=== PATIENT | female | born 1945 | race Caucasian/White ===

== ENCOUNTER 2017-09-28 14:20 | Outpatient (CLI) | payer MEDICARE | END 2017-09-28 14:21 | disposition home or self-care (01) | LOC: BICMAMMO 14:20 | PROVIDERS: ATTEND Obstetrics & Gynecology | DX: Z12.31 Encounter for screening mammogram for malignant neoplasm of breast (principal); R92.1 Mammographic calcification found on diagnostic imaging of breast | CPT/HCPCS: 77063; 77067 ==

== ENCOUNTER 2019-05-10 12:41 | Outpatient (CLI) | payer MEDICARE ==
--- NOTE | 2019-05-10 16:10 | NM ---
EXAM: NM Hida Scan W Drug PROVIDED CLINICAL HISTORY: Right upper quadrant abdominal pain. COMPARISON: None FINDINGS: There is prompt uptake and excretion of radiotracer by the liver. Bowel activity is visualized by 7 m inutes with gallbladder activity visualized by approximately 15 minutes with increasing activity in the gallbladder imaging up to 60 minutes. After 60 minutes of imaging, 8 ounces of Ensure was adminis tered by mouth. A gallbladder ejection fraction of 57% was obtained. A normal gallbladder ejection fraction is greater than 33%. IMPRESSION: 1. No evidence of a cystic or common duct obstruction. 2. Normal gallbladder ejection fraction.
== END 2019-05-10 12:42 | disposition home or self-care (01) ==
LOC: NM 12:41
PROVIDERS: ATTEND Internal Medicine
DX: R10.11 Right upper quadrant pain (principal); R11.0 Nausea
CPT/HCPCS: 78227; A9537

== ENCOUNTER 2019-06-05 10:54 | Outpatient (CLI) | payer MEDICARE ==
--- NOTE | 2019-06-05 11:46 | CT ---
EXAM: CT ABDOMEN AND PELVIS HISTORY: Gastric mass. COMPARISON: 01/30/2015 Procedure: Multiple contiguous axial images were obtained and a CT of the abdomen and pelvis with IV contrast. C oronal reformats were performed. FINDINGS: Lower Chest: within normal limits. Vessels: Normal caliber aorta. Atherosclerosis Heart: Normal heart size. No significant pericardial fluid. Abdomen: Portal vein:Patent Gallbladder: Cholelithiasis. No CT evidence of cholecystitis. Liver: Hypoattenuation likely due to hepatic steatosis. No hepatic masses. Pancreas: within normal limits. Spleen: within normal limits. Adrenals: within normal limits. Kidneys: There is symmetric enhancement of the kidneys. There is moderate dilatation of the right int rarenal collecting distal. This obscuration of the proximal and mid right ureter as well as the right ureteropelvic junction due to fat stranding. Distal right ureter is grossly unremarkable. There is evidence of enhancement. Findings may be on the basis of infectious, inflammatory process. Obstruction cannot be entirely excluded. Retrograde IVP is recommended, along with a urology consult patient. No evidence of left-sided obstructive uropathy. Cyst in the lower pole of the left kidney is redemonstrated. Peritoneum: There is perihepatic and perisplenic fluid. Additionally there is scattered fluid through out the abdominal mesentery. The amount of fluid does not warrant paracentesis at this time. Bowel: There is circumferential mucosal thickening of the gastric mucosa. Intraluminal mass cannot be adequately assessed due to inadequate distention. There is mild stranding of the duodenum and proximal jejunum. Nevertheless no evidence of high-grade bowel obstruction. Contrast opacifies the ri ght hemicolon. Ileocecal junction is unremarkable. Scattered fecal material in a nondistended, nondilated colon. Mesentery and Retroperitoneum: No enlarged mesenteric or retroperitoneal lymph nodes. Abdominal Wall: within normal limits. Pelvis: Reproductive Organs: Reproductive organs are unremarkable. Pelvis: There is free fluid in the pelvis. No mass, lymphadenopathy or free air Bladder: Limited evaluation. Grossly unremarkable. Bones: within normal limits. IMPRESSION: 1. Limited evaluation of a known gastric mass. 2. Nonspecific free fluid in the abdomen or pelvis. 3. Moderate dilatation of the right intrarenal collecting system without associated obstructing calcu romelia. Retrograde IVP is recommended for better interrogation. Urology consultation is recommended. Results of study discussed with Dr. Jefferson 06/05/2019 at 11:44 AM Code CR Transcribed Date/Time: 06/05/2019 11:54 AM
== END 2019-06-05 10:55 | disposition home or self-care (01) ==
LOC: BICCT 10:54
PROVIDERS: ATTEND Internal Medicine Gastroenterology
DX: K31.89 Other diseases of stomach and duodenum (principal)
CPT/HCPCS: 74177; 82565

== ENCOUNTER 2019-06-09 19:43 | Emergency (ER) | payer MEDICARE ==
[2019-06-09 20:30] LABS: Bilirubin Small (Negative); Blood, Urine Moderate (Negative); Clarity Slightly Cloudy (Clear); Glucose, Urine (Dipstick) Negative (Negative); Leukocyte Negative (Negative); Nitrite Negative (Negative); Protein, Urine (Dipstick) Trace mg/dL (Neg-Trace)
[2019-06-09 20:36] LABS: Bacteria/HPF 1+ HPF (None Seen); Mucous/LPF 1+ LPF (<2+)
[2019-06-09 20:37] LABS: Calcium Oxalate Crystals 2+ HPF (None Seen)
[2019-06-09 20:41] LABS: Eosinophils 4 % (0-10); Hemoglobin 11.9 g/dL (12.0-16.0); Lymphocytes 1 % (21-51); MDiff Complete? YES; Mean Corpuscular HGB CONC 32.4 g/dL (32.0-36.0); Mean Corpuscular Hemoglobin 28.1 pg (27.0-31.0); Mean Corpuscular Volume 86.8 fL (78.0-98.0); Mean Platelet Volume 6.6 fL (7.4-10.4); Monocytes 7 % (0-10); Neutrophil 86 % (42-75); Platelet Count 305 thou/uL (130-400); Platelet Morphology Comment Appears Adequate; RBC Distribution Width 12.7 % (11.5-14.5); Reactive Lymphocytes 1 % (0-10); Red Blood Cell (RBC) Count 4.22 mill/uL (4.20-5.40); White Blood Cell (WBC) Count 13.8 thou/uL (4.8-10.8)
[2019-06-09 20:47] LABS: ALT (SGPT) 14 U/L (8-55); AST (SGOT) 17 U/L (5-34); Albumin 3.4 g/dL (3.4-4.8); Alkaline Phosphatase 49 U/L (40-110); Anion Gap 17 mmol/L (10-20); BUN (Urea Nitrogen) 18 mg/dL (9.8-20.1); Bilirubin, Total 0.4 mg/dL (0.2-1.2); Calc. Creatinine Clearance 0 mL/min (70-130); Calcium 9.6 mg/dL (7.8-10.44); Carbon Dioxide 25 mmol/L (23-31); Chloride 101 mmol/L (98-107); Estimated GFR-MDRD 54; Globulin 3.4 g/dL (2.4-3.5); Glucose 150 mg/dL (83-110); Lipase 28 U/L (8-78); Potassium 3.6 mmol/L (3.5-5.1); Protein, Total 6.8 g/dL (6.0-8.3); Sodium 139 mmol/L (136-145)
--- NOTE | 2019-06-09 20:50 | RAD ---
XR Chest Pa Lat STANDARD HISTORY: Fever and cough COMPARISON: None. FINDINGS: Heart size is upper limits. There are atherosclerotic changes of the aorta. The lungs are c lear of infiltrates. There are arthritic changes of the spine. IMPRESSION: No active intrathoracic disease.
[2019-06-09] MEDS ORDERED: cefTRIAXone\\ROCEPHIN 1 GM VIAL ONE (21:13)
[2019-06-09] MEDS ORDERED: Sodium Chloride 0.9% 100 ML ONE (21:14)
== END 2019-06-09 22:00 | disposition home or self-care (01) ==
LOC: SCSER 19:43
DX: R50.9 Fever, unspecified (principal); K21.9 Gastro-esophageal reflux disease without esophagitis; M19.90 Unspecified osteoarthritis, unspecified site; Z79.899 Other long term (current) drug therapy; Z79.52 Long term (current) use of systemic steroids
CPT/HCPCS: 36415; 71046; 80053; 81003; 81015; 83605; 83690; 85025; 87040; 87086; 96365; J0696; J3490

== ENCOUNTER 2019-06-18 06:13 | Outpatient (CLI) | payer MEDICARE ==
[2019-06-18 16:14] LABS: Hemoglobin 11.7 g/dL (12.0-16.0); Mean Corpuscular HGB CONC 32.1 g/dL (32.0-36.0); Mean Corpuscular Volume 87.1 fL (78.0-98.0); Mean Platelet Volume 6.9 fL (7.4-10.4); Platelet Count 416 thou/uL (130-400); RBC Distribution Width 13.2 % (11.5-14.5)
[2019-06-18 16:21] LABS: INR-International Normal Ratio 1.1; PTT 26.8 SEC (22.9-36.1); Prothrombin Time 13.9 SEC (12.0-14.7)
[2019-06-18 16:33] LABS: Anion Gap 13 mmol/L (10-20); BUN (Urea Nitrogen) 34 mg/dL (9.8-20.1); Calc. Creatinine Clearance 0 mL/min (70-130); Calcium 8.9 mg/dL (7.8-10.44); Carbon Dioxide 28 mmol/L (23-31); Chloride 101 mmol/L (98-107); Estimated GFR-MDRD 59; Glucose 132 mg/dL (83-110); Potassium 4.7 mmol/L (3.5-5.1); Sodium 137 mmol/L (136-145)
--- NOTE | 2019-06-20 18:49 | EKG ---
Test Reason : Blood Pressure : / mmHG Vent. Rate : 076 BPM Atrial Rate : 076 BPM P-R Int : 116 ms QRS Dur : 122 ms QT Int : 402 ms P-R-T Axes : 037 004 042 degrees QTc Int : 452 ms Normal sinus rhythm Right bundle branch block Abnormal ECG Confirmed by DR. Yasmine CASSIDY ([id number]) on 06/20/2019 6:49:04 PM Referred By: AMARJIT Confirmed By:DR. Yasmine CASSIDY
== END 2019-06-18 06:14 | disposition home or self-care (01) ==
LOC: LABBT 06:13
PROVIDERS: ATTEND Urology
DX: Z01.818 Encounter for other preprocedural examination (principal); N13.39 Other hydronephrosis
CPT/HCPCS: 80048; 85027; 85610; 85730; 93005; 93010

== ENCOUNTER 2019-06-21 13:01 | Day surgery (SDC) | payer MEDICARE ==
[2019-06-18 15:28] VITALS: BMI 24.7
[2019-06-21] MEDS ORDERED: Dexamethasone 20 MG/5 ML VIAL ONE (14:00)
[2019-06-21] MEDS ORDERED: Ondansetron PF 4 MG/2 ML Vial ONE ×2 (14:00→20:17)
[2019-06-21] MEDS ORDERED: Ketorolac Tromethamine 30 MG/ML VIAL ONE (14:00)
[2019-06-21] MEDS ORDERED: Lidocaine 1% PF 5 ML VIAL ONE (14:00)
[2019-06-21] MEDS ORDERED: PHENYLEPHRINE-NS 100 MCG/ML 10 ML SYRINGE ONE (14:00)
[2019-06-21] MEDS ORDERED: PROPOFOL 200 MG/20 ML VIAL ONE (14:00)
[2019-06-21] MEDS ORDERED: Succinylcholine Chloride 20 MG/ML 10 ml SYRINGE FS ONE (14:00)
[2019-06-21] MEDS ORDERED: cefTRIAXone\\ROCEPHIN 1 GM VIAL ONE (16:50)
[2019-06-21] MEDS ORDERED: Sodium Chloride 0.9% 100 ML ONE (16:50)
[2019-06-21] MEDS ORDERED: Iothalamate Meglumine 60% 50 ML VIAL FS ONE (18:12)
[2019-06-21] MEDS ORDERED: B & O ONE (18:12)
[2019-06-21] MEDS ORDERED: Fentanyl 100 MCG/2 ML VIAL ONE ×2 (18:13→19:39)
--- NOTE | 2019-06-21 19:34 | RAD ---
Retrograde ureterogram intraoperative fluoroscopy HISTORY: Ureteral obstruction. FINDINGS: Intraoperative fluoroscopy was provided for retrograde study as performed by Dr. Nolan. S pot fluoroscopic image shows contrast opacification of a mildly distended upper right ureter and mildly distended right renal collecting system. Fluoroscopy time 40 seconds.
[2019-06-21] MEDS ORDERED: Promethazine HCl 25 MG/ML VIAL ONE (19:51)
--- NOTE | 2019-06-21 23:01 | OP ---
DATE OF PROCEDURE: 06/21/2019 SERVICE: Urology. PREOPERATIVE DIAGNOSIS: Right hydronephrosis. POSTOPERATIVE DIAGNOSIS: Right ureteral stricture. PROCEDURE PERFORMED: Cystoscopy with right retrograde pyelogram, right ureteroscopy and balloon dilation of stricture and placement of a 6 x 24 double-J stent. INDICATION FOR PROCEDURE: Mrs. Medina is a 74-year-old white female, recently diagnosed with gastric cancer. She instantly had right-sided hydronephrosis which was noted on CT. It was unclear if this was due to the tumor or due to an intrinsic problem within the ureter. We opted to take her to the operating room for treatment, including retrograde and treatment of whatever we found at the site of the hydronephrosis. Risks and benefits were discussed and she has agreed to proceed forward. DESCRIPTION OF PROCEDURE: After identification of armband and verification of consent, the patient was brought back to the operating room, where she underwent general anesthesia with endotracheal intubation. She was then placed in the dorsal lithotomy position and prepped and draped in usual sterile fashion. After appropriate time-out, a lubricated 22-[place] rigid cystoscope was introduced per urethra into the bladder. She does have a cystocele, midline, with no mucosal abnormalities and no other abnormal findings within the urethra or bladder. Both ureters were in orthotopic location. A 5-[place] Pollack catheter was advanced through the right ureteral orifice and a retrograde pyelogram performed demonstrating a narrowing at the proximal right ureter, a dilated mid segment and another narrowing toward the mid ureter. The Pollack catheter was removed and a 0.035 Sensor wire was advanced through the right ureteral orifice to the level of renal pelvis. A dual-lumen catheter was advanced over the Sensor wire up to the level of the mid ureter. An Amplatz Super Stiff wire was then attempted to be advanced into the renal pelvis, but could only be gotten to the point of where the narrowing was noted on the retrograde pyelogram. The dual-lumen was then removed and a 11/13 x 28 cm ureteral access sheath was advanced up to the mid ureter. The inner cannula and Super Stiff wire were then removed leaving the outer sheath and Sensor wire in place as a safety wire. A flexible digital ureteroscope was then brought in and ureteroscopy performed, which demonstrated a narrowing in the mid ureter, but no actual stricture at this location. With some pressure, we were able to push the ureteroscope past dissection up to the proximal ureter, where there was definitive stricture. There was no tumor or stone noted at this location, but just again an intrinsic ureteral stricture. It is unclear how this came to be, but using the ureteroscope, a guidewire was able to be advanced alongside the Sensor wire into the renal pelvis. The ureteroscope was then removed and a ureteral-max 15-[place] balloon dilator was advanced over the guidewire up to the level of the stricture. This was a 15-[place] by 6 cm balloon, which was dilated up to 20 atmospheres as positioned over the ureteral stricture. Another dilation was also done in the mid ureter, where the narrowing segment was. The guidewire and balloon were then taken down and taken out of the ureteral access sheath and the ureteroscope were advanced back in. This demonstrated nice dilation and opening of the ureteral stricture as well as the mid ureter. The ureteroscope was then able to pass easily through the section and into the renal pelvis, which looked normal. There were no other mucosal abnormalities or any evidence of stones or tumors. Satisfied that the stricture was now treated, the ureteroscope was withdrawn and the sheath was removed. The cystoscope was then backloaded over the Sensor wire back into the bladder and a 6 x 24 double-J stent with no string was advanced over the Sensor wire up to the level of renal pelvis. The wire was then removed leaving a good curl in the bladder and a good curl in the kidney. The bladder was then drained and cystoscope removed. The patient had a 16-A B and O suppository placed in the rectum, taken out of positioning, awakened, taken to PACU for recovery in stable condition. COMPLICATIONS: None. ESTIMATED BLOOD LOSS: Minimal. ROUTINE TUBES AND DRAINS: 6 x 24 double-J stent on the right. SPECIMENS: None. DISPOSITION: The patient will be discharged home and follow up with me in approximately 1 week at which point, we will discuss her future plans. She will probably need to keep the stent in for at least 2 to possibly 3 weeks to allow for adequate dilation at which point, we will remove the stent in the office. Job ID: [id number]
== END 2019-06-21 21:20 | disposition home or self-care (01) ==
LOC: SDC 13:01
PROVIDERS: ATTEND Urology
PROC: 0T768DZ Dilation of Right Ureter with Intraluminal Device, Via Natural or Artificial Opening Endoscopic (ICD-10-PCS; principal; 2019-06-21)
PROC: 0T768DZ Dilation of Right Ureter with Intraluminal Device, Via Natural or Artificial Opening Endoscopic (ICD-10-PCS; 2019-06-21)
DX: N13.1 Hydronephrosis with ureteral stricture, not elsewhere classified (principal); C16.9 Malignant neoplasm of stomach, unspecified; M19.90 Unspecified osteoarthritis, unspecified site; E05.00 Thyrotoxicosis with diffuse goiter without thyrotoxic crisis or storm; Z79.52 Long term (current) use of systemic steroids; Z79.899 Other long term (current) drug therapy; Z88.2 Allergy status to sulfonamides; Z88.5 Allergy status to narcotic agent
CPT/HCPCS: 52332; 52344; 74420; C1758; C1769; J0690; J0696; J2405; J2550; J3010; J3490